=== PATIENT | female | born 1985 | race Caucasian/White ===

== ENCOUNTER → 2016-08-22 | Outpatient (CLI) | payer MEDICARE, OTHER ==
--- NOTE | 2016-08-24 10:32 | RAD ---
EXAM DESCRIPTION: Left shoulder, 4 radiographs CLINICAL HISTORY: SHOULDER PAIN FINDINGS/ IMPRESSION: No fracture or dislocation. 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 Visualized left lung is clear Electronically signed by: Jono Roberts MD 08/24/2016 10:32 AM CDT Workstation: [id number]
== END | disposition home or self-care (01) ==
LOC: RAD 08:20
PROVIDERS: ATTEND Orthopaedic Surgery
DX: M25.512 Pain in left shoulder (principal)

== ENCOUNTER → 2016-09-25 | Outpatient (CLI) | payer MEDICARE, OTHER ==
--- NOTE | 2016-09-25 10:37 | RAD ---
EXAM DESCRIPTION: Arthrogram Shoulder Left CLINICAL HISTORY: 31 years Female, ROTATOR CUFF TEAR OF RUPTURE COMPARISON: None. FINDINGS: Total fluoroscopy time 0.7 seconds, 6 fluoroscopic images, total exam dose 25.55 mGy. The risks, benefits and alternatives of a shoulder arthrogram were discussed with the patient including risks of pain, bleeding, infection and nondiagnostic result. The patient was given an opportunity to ask questions about the procedure, its risks, benefits and alternatives. She stated she understood these things and wished to proceed. The patient denied any known relevant drug allergies. A time-out was conducted prior to the procedure. The patient was placed in the supine position on the fluoroscopy table and a suitable access site anterior to the shoulder joint was identified and marked on the patient's skin surface. The skin was prepped and draped in the usual sterile manner. Approximately 3 cc of 1% lidocaine were used for local anesthesia. Using real-time fluoroscopic guidance, a 22 gauge spinal needle was placed into the left shoulder joint space and approximately 13 cc of a solution containing iodinated contrast were injected into the shoulder joint. The spinal needle was withdrawn, and the shoulder was exercised. Multiple fluoroscopic images of the shoulder were obtained in both neutral and abducted positions with internal and external rotation. No rotator cuff tear or other fluoroscopically apparent left shoulder abnormality is seen. The patient was sent to the CT suite for completion of this exam. The patient tolerated the procedure well, and there were no postprocedure complications. IMPRESSION: Uncomplicated left shoulder arthrogram. Please see separate report from the CT portion of today's exam for further discussion of findings. Electronically signed by: Von Scales MD 09/25/2016 10:36 AM CDT Workstation: [id number]
== END | disposition home or self-care (01) ==
LOC: CT 08:48
PROVIDERS: ATTEND Orthopaedic Surgery
DX: M75.102 Unspecified rotator cuff tear or rupture of left shoulder, not specified as traumatic (principal)

== ENCOUNTER → 2016-12-18 | Outpatient (CLI) | payer MEDICARE, MEDICAID ==
--- NOTE | 2016-12-19 10:15 | RAD ---
EXAM DESCRIPTION: Clavicle,Left CLINICAL HISTORY: 31 years, Female, CLAVICLE PAIN COMPARISON: Shoulder films August 22 FINDINGS: No fracture or dislocation. There is irregularity of the distal clavicle at the acromioclavicular joint suggestive of chronic arthritis or prior trauma. IMPRESSION: No fracture or dislocation. Arthritic type changes in the distal clavicle at the AC joint Electronically signed by: Delvis Quijano MD 12/19/2016 10:14 AM CDT
== END | disposition home or self-care (01) ==
LOC: RAD 09:11
PROVIDERS: ATTEND Orthopaedic Surgery
DX: M25.512 Pain in left shoulder (principal)